=== PATIENT | male | born 1995 | race Two or more races ===

== ENCOUNTER 2016-09-24 13:57 | Emergency (ER) | payer BC ==
[~2016-09-24] VITALS: Ht 160 cm; Wt 66.5 kg
[2016-09-24 14:19] VITALS: Ht 160 cm; Wt 66.5 kg
[2016-09-24] MEDS ORDERED: BACITRACIN 0.5%/ZINC 28.35 GM OINT TOP ONE ×2 (16:30→17:00)
[2016-09-24] MEDS ORDERED: DIPHTH/TET/ACEL PERTUSS (ADULT) 0.5 ML VIAL IM* ONE (16:30)
[2016-09-24] MEDS ORDERED: CEPH-443 PO (16:46)
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
== END 2016-09-24 17:31 | disposition home or self-care (01) ==
LOC: FTE 13:57
DX: T23.212A Burn of second degree of left thumb (nail), initial encounter (principal); J45.909 Unspecified asthma, uncomplicated; W93.11XA Contact with liquid air, initial encounter; Y92.89 Other specified places as the place of occurrence of the external cause; Z23 Encounter for immunization
CPT/HCPCS: 90471; 90715; Z7502; Z7610

== ENCOUNTER 2018-08-11 13:00 | Emergency (ER) | payer BC ==
[~2018-08-11] VITALS: Wt 65.0 kg
[~2018-08-11 13:00] MED LIST: CEPH-443 PO
[2018-08-11 13:03] VITALS: BP 119/67; PULSE 95; RESP 18
--- NOTE | 2018-08-11 13:50 | ERD ---
ER Documentation Chief Complaint Chief Complaint LEFT EYE REDNESS HPI 23-year-old male, previously healthy, presents the emergency department, complaining of 2 days with painless erythema on the left eye, associated with yellowish discharge and itching. No fever, no chills, no blurred vision. The patient does not wear contact lenses. No medications taken for this problem. ROS All systems reviewed and are negative except as per history of present illness. Medications Home Meds Active Scripts Tobramycin-Dexamethasone (Tobramycin-Dexamethasone Ophth) 0.3%-0.1% - 5 Ml Drops.susp, 1 DROP LEFT EYE Q4 for 5 Days, #1 EA Prov:JAIRO BORDEN MD 08/11/18 Cephalexin* (Keflex*) 500 Mg Capsule, 500 MG PO TID for 7 Days, #21 CAP Prov:JERILYN LIVE PA-C 09/24/16 Allergies Allergies: Coded Allergies: No Known Allergy (Unverified , 08/12/15) PMhx/Soc History of Surgery: No Anesthesia Reaction: No Hx Neurological Disorder: No Hx Respiratory Disorders: Yes (ASTHMA ) Hx Cardiac Disorders: No Hx Psychiatric Problems: No Hx Miscellaneous Medical Probl: No Hx Alcohol Use: No Hx Substance Use: No (MARIJUANA AND MUSHROOMS HX) Hx Tobacco Use: No FmHx Family History: No diabetes, No coronary disease Physical Exam Vitals Vital Signs Date Temp Pulse Resp B/P (MAP) Pulse Ox O2 O2 Flow FiO2 Time Delivery Rate 08/11/18 98.8 95 18 119/67 99 13:03 (84) Physical Exam Const: No acute distress Head: Atraumatic Eyes: Left eye with injected conjunctiva, erythematous, yellowish discharge noticed. Full range of motion, PERRLA. Anterior chamber clear. Contralateral eye normal. ENT: Normal External Ears, Nose and Mouth. Neck: Full range of motion. No meningismus. Resp: Clear to auscultation bilaterally Cardio: Regular rate and rhythm, no murmurs Abd: Soft, non tender, non distended. Normal bowel sounds Skin: No petechiae or rashes Back: No midline or flank tenderness Ext: No cyanosis, or edema Neur: Awake and alert Psych: Normal Mood and Affect Procedures/MDM Differential diagnosis include but not limited to: infection bacterial/viral/fungal, iritis, scleritis, corneal abrasion, allergies, foreign body, glaucoma. Physical examination and clinical presentation consistent most likely with acute conjunctivitis. During the ED course the patient remained stable, no new complaints. Clinical impression discussed with patient who agrees with management. The patient is stable to be treated outpatient and will be discharged home; Some side effects of prescribed medications (headache, rash, nausea, vomiting, diarrhea, interactions with other medications) were reviewed. The patient was instructed to follow up with the primary care provider in the next 48h. If symptoms persist, worsen or new symptoms develop, then patient should return to the ED immediately. Disclaimer: Inadvertent spelling and grammatical errors are likely due to EHR/dictation software use and do not reflect on the overall quality of patient care. Also, please note that the electronic time recorded on this note does not necessarily reflect the actual time of the patient encounter. Departure Diagnosis: Primary Impression: Conjunctivitis, left eye Condition: Stable Additional Instructions: Thank you very much for allowing us to participate in your care. Your health and safety is our top priority at [facility]. Call your primary care doctor TOMORROW for an appointment during the next 2-4 days and bring all the information and medications prescribed. Have prescriptions filled and follow precisely the directions on the label. If the symptoms get worse and your provider is unavailable, return to the Emergency Department immediately. JAIRO BORDEN MD Aug 11, 2018 13:50
[2018-08-11] MEDS ORDERED: TOBR5DRO14 LEFT EYE (13:54)
== END 2018-08-11 14:04 | disposition home or self-care (01) ==
LOC: FTE 13:00
DX: H10.9 Unspecified conjunctivitis (principal); J45.909 Unspecified asthma, uncomplicated
CPT/HCPCS: 99282